=== PATIENT | female | born 1980 | race Caucasian/White ===

== ENCOUNTER 2017-01-30 07:54 | Day surgery (SDC) | payer BC ==
[~2017-01-30] VITALS: Ht 162.6 cm; Wt 88.5 kg
[~2017-01-30 07:54] MED LIST: LORTAB 5/500 501 TAB PO; NO HOME MEDICATIONS; NORCO 325 MG-51 TAB PO; PREDNISONE20 MG PO; PRILOSEC 20MG20 MG PO
[2017-01-30 08:29] VITALS: BP 119/93; PULSE 94; TEMP 98.3
[2017-01-30] MEDS ORDERED: TYLENOL 8 HR PO (08:54)
[2017-01-30 10:12] VITALS: BP 121/84; PULSE 75; TEMP 97.8
[2017-01-30 10:30] VITALS: BP 112/79; PULSE 67
[2017-01-30] MEDS ORDERED: LEVSIN0.125 M1 PO (10:32)
[2017-01-30 13:02] VITALS: BP 110/79; PULSE 73
== END 2017-01-30 11:10 | disposition home or self-care (01) ==
LOC: SDCO 07:54
DX: R10.31 Right lower quadrant pain (principal); K64.0 First degree hemorrhoids; R19.4 Change in bowel habit; Z80.0 Family history of malignant neoplasm of digestive organs; F17.210 Nicotine dependence, cigarettes, uncomplicated; Z68.36 Body mass index [BMI] 36.0-36.9, adult
CPT/HCPCS: OP; J2250; J3010; J7030

== ENCOUNTER → 2017-03-27 | Outpatient (CLI) | payer BC ==
[~2017-03-27] MED LIST changes: +LEVSIN0.125 M1 PO; +TYLENOL 8 HR PO
== END ==
LOC: MHCPAIN 14:19
DX: G89.29 Other chronic pain (principal); R10.30 Lower abdominal pain, unspecified; G57.90 Unspecified mononeuropathy of unspecified lower limb; F17.210 Nicotine dependence, cigarettes, uncomplicated
CPT/HCPCS: G0463

== ENCOUNTER → 2017-04-02 | Outpatient (CLI) | payer BC | LOC: MHCPAIN 08:00 | DX: G58.8 Other specified mononeuropathies (principal) | CPT/HCPCS: J1100 ==

== ENCOUNTER → 2017-05-02 | Outpatient (CLI) | payer BC | LOC: MHCPAIN 10:51 | DX: G89.29 Other chronic pain (principal); R10.30 Lower abdominal pain, unspecified; M79.2 Neuralgia and neuritis, unspecified; M79.1 Myalgia; F17.210 Nicotine dependence, cigarettes, uncomplicated | CPT/HCPCS: G0463 ==

== ENCOUNTER → 2017-08-01 | Outpatient (CLI) | payer BC | LOC: MHCPAIN 07:54 | DX: G89.29 Other chronic pain (principal); M79.2 Neuralgia and neuritis, unspecified; M79.1 Myalgia; F17.210 Nicotine dependence, cigarettes, uncomplicated | CPT/HCPCS: G0463 ==

== ENCOUNTER → 2017-08-08 | Outpatient (CLI) | payer BC | LOC: MHCPAIN 14:26 | DX: M79.2 Neuralgia and neuritis, unspecified (principal) | CPT/HCPCS: J1040 ==

== ENCOUNTER 2017-12-10 13:57 | Emergency (ER) | payer BC ==
[~2017-12-10] VITALS: Ht 160 cm; Wt 97.7 kg
[2017-12-10 14:01] VITALS: TEMP 98.3
[2017-12-10] MEDS ORDERED: LIORESAL 1010 MG/TAB PO (14:29)
[2017-12-10 16:27] LABS: BASO % 0.2 % (0.0-2.0); EOS # 0.1 (0.0-0.7); EOS % 1.5 % (0-4.0); HEMATOCRIT 39.6 % (37.0-47.0); HEMOGLOBIN 13.1 g/dl (12.5-16.0); LYMPH # 2.8 (1.2-3.4); LYMPH % 32.4 % (20.0-51.0); MEAN CELL VOLUME 84 fl (80.0-100.0); MEAN CORPUSCULAR HEMOGLOBIN 28 pg (27.0-31.0); MEAN CORPUSCULAR HGB CONC 33 g/dl (33.0-37.0); MEAN PLATELET VOLUME 9.8 fl (7.4-10.4); MONO # 0.7 (0.1-0.6); MONO % 7.6 % (1.7-9.3); PLATELET COUNT 264 K/mm3 (130-400); RED BLOOD COUNT 4.71 M/mm3 (4.10-5.30); REDCELL DISTRIBUTION WIDTH-CV 13.6 % (11.5-14.5)
[2017-12-10 16:39] LABS: ALBUMIN 4.3 gm/dL (3.5-5.0); BILIRUBIN,TOTAL 0.5 mg/dL (0.0-1.0); CALCIUM 9.5 mg/dL (8.4-10.2); CREATININE, serum 0.67 mg/dL (0.52-1.25); POTASSIUM 3.9 mmol/L (3.4-5.0); TOTAL PROTEIN 8.6 gm/dL (6.4-8.2)
[2017-12-10] MEDS ORDERED: ANTIVERT 25MG25 MG PO (17:03)
[2017-12-10 17:10] VITALS: BP 132/78; PULSE 84
== END 2017-12-10 17:18 | disposition home or self-care (01) ==
LOC: COL.ER 13:57
PROVIDERS: Emergency Medicine
DX: H81.10 Benign paroxysmal vertigo, unspecified ear (principal); Z90.49 Acquired absence of other specified parts of digestive tract; Z87.891 Personal history of nicotine dependence